=== PATIENT | male | born 2000 | race Caucasian/White ===

== ENCOUNTER 2021-09-20 14:16 | Emergency (ER) | payer BC, MEDICAID, SELFPAY ==
[~2021-09-20] VITALS: Ht 167.6 cm; Wt 118.3 kg
[2021-09-20] MEDS ORDERED: SYMB16INH (14:33)
[2021-09-20] MEDS ORDERED: MONT10TA10 (14:33)
[2021-09-20] MEDS ORDERED: ARIP1TAB6 (14:33)
[2021-09-20] MEDS ORDERED: BUSP15TA47 (14:33)
[2021-09-20] MEDS ORDERED: ALBU8.5H (14:33)
[2021-09-20] MEDS ORDERED: FLUO40CA (14:33)
[2021-09-20] MEDS ORDERED: BUDE10.2 (14:33)
[2021-09-20 15:25] LABS: HEMATOCRIT 52.4 % (42.0-52.0); HEMOGLOBIN 17.6 g/dl (13.5-17.5); MEAN CORPUSCULAR HEMOGLOBIN 28.9 pg (27.0-33.0); MEAN CORPUSCULAR HGB CONC 33.6 g/dl (32.0-36.5); MEAN CORPUSCULAR VOLUME 85.9 fl (80.0-96.0); PLATELET COUNT, AUTOMATED 352 10^3/uL (150-450); WHITE BLOOD COUNT 10.8 10^3/uL (4.0-10.0)
[2021-09-20 16:01] LABS: ACETAMINOPHEN LEVEL < 2.0 UG/ML (10.0-30.0); ALBUMIN 4.8 GM/DL (3.2-5.2); ALT/SGPT 97 U/L (12-78); BILIRUBIN,DIRECT 0.2 MG/DL (0.0-0.2); BLOOD UREA NITROGEN 10 MG/DL (7-18); CALCIUM LEVEL 10.1 MG/DL (8.5-10.1); CARBON DIOXIDE LEVEL 24 MEQ/L (21-32); CHLORIDE LEVEL 106 MEQ/L (98-107); CREATININE FOR GFR 0.78 MG/DL (0.70-1.30); ETHYL ALCOHOL (ETHANOL) < 0.003 % (0.000-0.010); GLUCOSE, FASTING 97 MG/DL (70-100); POTASSIUM SERUM 3.9 MEQ/L (3.5-5.1); SALICYLATE LEVEL < 1.7 MG/DL (5.0-30.0); SODIUM LEVEL 139 MEQ/L (136-145); TOTAL PROTEIN 8.5 GM/DL (6.4-8.2)
[2021-09-20 17:59] LABS: AMPHETAMINES LEVEL URINE NEGATIVE (NEGATIVE); BARBITURATES URINE NEGATIVE (NEGATIVE); BENZODIAZEPINES URINE NEGATIVE (NEGATIVE); CANNABINOIDS URINE POSITIVE (NEGATIVE); COCAINE METABOLITE URINE NEGATIVE (NEGATIVE); METHADONE URINE NEGATIVE (NEGATIVE); OPIATES URINE NEGATIVE (NEGATIVE); PHENCYCLIDINE URINE NEGATIVE (NEGATIVE)
[2021-09-20] MEDS ORDERED: busPIRone 5 MG TAB PO SCH (21:00)
[2021-09-20] MEDS ORDERED: MONTELUKAST 10 MG TAB PO ONE (23:15)
[2021-09-21 03:03] LABS: RSV AMPLIFICATION NEGATIVE (NEGATIVE)
[2021-09-21] MEDS ORDERED: SYMB16INH INH (06:53)
[2021-09-21] MEDS ORDERED: BUSP15TA47 PO (06:53)
[2021-09-21] MEDS ORDERED: PROAAER10 INH (06:53)
[2021-09-21] MEDS ORDERED: ARIP1TAB6 PO (06:53)
[2021-09-21] MEDS ORDERED: ALBU83IN INH (06:53)
[2021-09-21] MEDS ORDERED: EPIP0.3I2 IM (06:53)
[2021-09-21] MEDS ORDERED: FLUO40CA PO (06:53)
[2021-09-21] MEDS ORDERED: ONDA8TAB8 PO (06:53)
[2021-09-21] MEDS ORDERED: MONT10TA10 PO (06:53)
[2021-09-21] MEDS ORDERED: CETI-24 PO (06:53)
[2021-09-21] MEDS ORDERED: HOME MED LIST COMPLETE! XX SCH (06:55)
--- NOTE | 2021-09-21 08:18 | ECGEPIP ---
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
[2021-09-21 11:02] VITALS: BP 142/72
== END 2021-09-21 11:05 ==
LOC: M ED 16:00
DX: R45.851 Suicidal ideations (principal); R44.0 Auditory hallucinations; F41.9 Anxiety disorder, unspecified; F32.9 Major depressive disorder, single episode, unspecified; F12.10 Cannabis abuse, uncomplicated; Z91.010 Allergy to peanuts

== ENCOUNTER → 2022-01-21 | Outpatient (CLI) | payer BC ==
[~2022-01-21] MED LIST: ALBU8.5H; ALBU83IN INH; ARIP1TAB6; ARIP1TAB6 PO; BUDE10.2; BUSP15TA47; BUSP15TA47 PO; CETI-24 PO; EPIP0.3I2 IM; FLUO40CA; FLUO40CA PO; MONT10TA97; MONT10TA97 PO; ONDA8TAB8 PO; PROAAER10 INH; SYMB16INH; SYMB16INH INH
== END ==
LOC: M SLEEP 20:00
PROVIDERS: ATTEND Physician Assistant
DX: G47.61 Periodic limb movement disorder (principal)